=== PATIENT | female | born 1975 | race American Indian/Alaskan Native ===

== ENCOUNTER 2017-11-04 09:54 | Emergency (ER) | payer MEDICAID ==
[2017-11-04 09:55] VITALS: BMI 37.2
[2017-11-04 10:15] VITALS: TEMP 99.1; O2SAT 98
--- NOTE | 2017-11-04 10:53 | ED PDOC ---
Arrival/HPI - General Chief Complaint: ENT Problem Time Seen by Provider: 11/04/17 10:20 Historian: Patient - History of Present Illness Narrative History of Present Illness (Text): 11/04/17 11:10 A 41 year old female, whose past medical history includes hypertension, asthma, frequent sinusitis, presents to the emergency department complaining of greenish mucoid nasal discharge, greenish expectoration with nose and cough for the past four days. Reports chest tightness and mild shortness of breath. Denies any non-tussive chest pain orthopnea or pretibial edema. Patient denies any other complaints at this time. Time/Duration: < week Symptom Onset: Sudden Symptom Course: Unchanged Activities at Onset: Rest Context: Home Past Medical History - Provider Review Nursing Documentation Reviewed: Yes - Infectious Disease Hx of Infectious Diseases: None - Tetanus Immunization Tetanus Immunization: Unknown - Reproductive Menopause: No - Cardiac Hx Cardiac Disorders: Yes Hx Hypertension: Yes - Pulmonary Hx Respiratory Disorders: Yes Hx Asthma: Yes - Neurological Hx Neurological Disorder: No - HEENT Hx HEENT Disorder: No - Renal Hx Renal Disorder: No - Endocrine/Metabolic Hx Endocrine Disorders: No - Hematological/Oncological Hx Blood Disorders: No - Integumentary Hx Dermatological Disorder: No - Musculoskeletal/Rheumatological Hx Falls: No - Gastrointestinal Hx Gastrointestinal Disorders: No - Genitourinary/Gynecological Hx Genitourinary Disorders: No Other/Comment: on depo shots every 2 months - Psychiatric Hx Psychophysiologic Disorder: No Hx Depression: No Hx Emotional Abuse: No Hx Physical Abuse: No Hx Substance Use: No - Past Surgical History Past Surgical History: No Previous - Anesthesia Hx Anesthesia: No - Suicidal Assessment Feels Threatened In Home Enviroment: No Family/Social History - Physician Review Nursing Documentation Reviewed: Yes Family/Social History: No Known Family HX Smoking Status: Never Smoked Hx Alcohol Use: No Hx Substance Use: No Hx Substance Use Treatment: No Allergies/Home Meds Allergies/Adverse Reactions: Allergies No Known Allergies Allergy (Verified 11/04/17 10:15) Home Medications: Home Meds Medication Instructions Recorded Confirmed Medroxyprogesterone Acetate 150 mg IM PRN 11/04/17 11/04/17 [Depo-Provera] Review of Systems - Physician Review All systems were reviewed & negative as marked: Yes - Review of Systems ENT: Other (mucoid nasal discharge) Respiratory: SOB (mild), Cough (discharge) Cardiovascular: Other (chest tightness). absent: Chest Pain, Orthopnea Physical Exam Vital Signs Reviewed: Yes Vital Signs Temp Pulse Resp BP Pulse Ox 11/04/17 12:09 74 18 125/69 98 11/04/17 11:19 79 18 128/71 98 11/04/17 10:11 99.1 F 85 19 132/72 98 Temperature: Afebrile Blood Pressure: Normal Pulse: Regular Respiratory Rate: Normal Appearance: Positive for: Well-Appearing, Non-Toxic, Comfortable Pain Distress: None Mental Status: Positive for: Alert and Oriented X 3 - Systems Exam Head: Present: Atraumatic, Normocephalic Pupils: Present: PERRL Extroacular Muscles: Present: EOMI Conjunctiva: Present: Normal Mouth: Present: Moist Mucous Membranes Nose (Internal): Present: Other (swollen turbinates nasal) Neck: Present: Normal Range of Motion Respiratory/Chest: Present: Other (decrease i/e ratio). No: Respiratory Distress, Accessory Muscle Use, Rhonchi Cardiovascular: Present: Regular Rate and Rhythm, Normal S1, S2. No: Murmurs Abdomen: Present: Normal Bowel Sounds. No: Tenderness, Distention, Peritoneal Signs Back: Present: Normal Inspection Upper Extremity: Present: Normal Inspection. No: Cyanosis, Edema Lower Extremity: Present: Normal Inspection. No: Edema Neurological: Present: GCS=15, CN II-XII Intact, Speech Normal Skin: Present: Warm, Dry, Normal Color. No: Rashes Psychiatric: Present: Alert, Oriented x 3, Normal Insight, Normal Concentration Medical Decision Making ED Course and Treatment: 11/04/17 11:02 Impression: A 41 year old female with cough and mucoid nasal discharge. Differential Diagnosis included but are not limited to: presumptive URI symptoms Plan: -- Zithromax, Prednisone -- Reassess and disposition Prior Visits: Notes and results from previous visits were reviewed. Patient was last seen in the emergency department on 08/18/17 for evaluation of nasal congestion, sore throat and cough. Progress Notes: Recommend use of asthma inhaler, Netipot and will discharge patient home. - Medication Orders Current Medication Orders: Discontinued Medications Azithromycin (Zithromax) 500 mg PO STAT STA PRN Reason: Protocol Stop: 11/04/17 10:47 Last Admin: 11/04/17 11:39 Dose: 500 mg Prednisone (Prednisone Tab) 60 mg PO STAT ONE Stop: 11/04/17 10:48 Last Admin: 11/04/17 11:38 Dose: 60 mg - Scribe Statement The provider has reviewed the documentation as recorded by the Reji Cyr Provider Scribe Attestation: All medical record entries made by the Hajaibe were at my direction and personally dictated by me. I have reviewed the chart and agree that the record accurately reflects my personal performance of the history, physical exam, medical decision making, and the department course for this patient. I have also personally directed, reviewed, and agree with the discharge instructions and disposition. Disposition/Present on Arrival - Present on Arrival Any Indicators Present on Arrival: No History of DVT/PE: No History of Uncontrolled Diabetes: No Urinary Catheter: No History of Decub. Ulcer: No History Surgical Site Infection Following: None - Disposition Have Diagnosis and Disposition been Completed?: Yes Diagnosis: Acute bronchitis Disposition: HOME/ ROUTINE Disposition Time: 14:00 Patient Plan: Discharge Condition: FAIR Discharge Instructions (ExitCare): Acute Bronchitis (ED) Print Language: VIET[place]ESE Additional Instructions: avoid all dairy products, drink plenty of water , especially water w/ fresh lemon. Avoid all your regular asthma triggers. TAKE THE ANTIOBTICS PRESCRIBED. USE YOUR INHALER. Prescriptions: Albuterol 0.083% [Albuterol 0.083% Inhal Eugenie (2.5 mg/3 ml) UD] 0.5 ml IH Q4 PRN 5 Days neb PRN Reason: Cough Albuterol HFA [Ventolin HFA 90 mcg/actuation (8 g)] 0.09 mg IH Q4 PRN #1 bottle PRN Reason: Cough Azithromycin 250 mg PO DAILY #4 tablet Benzonatate [Tessalon Perles] 100 mg PO TID PRN #30 sgl PRN Reason: Cough Prednisone [Deltasone] 40 mg PO DAILY #8 tablet Referrals: Emile Cope MD [Primary Care Provider] - Follow up with primary Forms: [email or web address] (Irish)
[2017-11-04 11:19] VITALS: RESP 18
[2017-11-04 12:09] VITALS: BP 125/69; PULSE 74
== END 2017-11-04 12:10 | disposition home or self-care (01) ==
LOC: ED 09:54
DX: J20.9 Acute bronchitis, unspecified (principal); I10 Essential (primary) hypertension

== ENCOUNTER 2018-02-02 15:10 | Emergency (ER) | payer MEDICAID ==
[2018-02-02 15:11] VITALS: BMI 37.2
[2018-02-02 15:59] VITALS: BP 134/84
--- NOTE | 2018-02-02 17:07 | ED PDOC ---
Arrival/HPI - General Chief Complaint: ENT Problem Time Seen by Provider: 02/02/18 17:07 Historian: Patient - History of Present Illness Narrative History of Present Illness (Text): 02/02/18 17:07 Patient was just placed on this room. 02/02/18 17:15 This 42 yo female with pmh htn, and pharyngitis, presents to this ED c/o sore throat since this morning. Patient stated it is painful to swallow, and she has noticed green phlegm. Denies sob, cp, recent travel, sick contact, n/v, skin rash, or urinary symptoms. Time/Duration: Other (since this morning) Context: Home Past Medical History - Provider Review Nursing Documentation Reviewed: Yes - Infectious Disease Hx of Infectious Diseases: None - Tetanus Immunization Tetanus Immunization: Unknown - Cardiac Hx Cardiac Disorders: Yes Hx Hypertension: Yes - Pulmonary Hx Respiratory Disorders: Yes Hx Asthma: Yes - Neurological Hx Neurological Disorder: No - HEENT Hx HEENT Disorder: No - Renal Hx Renal Disorder: No - Endocrine/Metabolic Hx Endocrine Disorders: No - Hematological/Oncological Hx Blood Disorders: No - Integumentary Hx Dermatological Disorder: No - Musculoskeletal/Rheumatological Hx Falls: No - Gastrointestinal Hx Gastrointestinal Disorders: No - Genitourinary/Gynecological Hx Genitourinary Disorders: No Other/Comment: on depo shots every 2 months - Psychiatric Hx Psychophysiologic Disorder: No Hx Depression: No Hx Emotional Abuse: No Hx Physical Abuse: No Hx Substance Use: No - Past Surgical History Past Surgical History: No Previous - Anesthesia Hx Anesthesia: No - Suicidal Assessment Feels Threatened In Home Enviroment: No Family/Social History - Physician Review Nursing Documentation Reviewed: Yes Family/Social History: Other (noncontributory) Smoking Status: Never Smoked Hx Alcohol Use: No Hx Substance Use: No Hx Substance Use Treatment: No Allergies/Home Meds Allergies/Adverse Reactions: Allergies No Known Allergies Allergy (Verified 02/02/18 15:53) Home Medications: Home Meds Medication Instructions Recorded Confirmed Cetirizine HCl [Zyrtec] 10 mg PO DAILY 02/02/18 02/02/18 Losartan [Cozaar] 100 mg PO DAILY 02/02/18 02/02/18 Montelukast [Singulair] 10 mg PO DAILY 02/02/18 02/02/18 Review of Systems - Review of Systems Constitutional: Normal. absent: Fatigue, Weight Change, Fevers Eyes: Normal ENT: Sore Throat, Rhinorrhea, Sinus Congestion Respiratory: Cough, Sputum. absent: SOB, Wheezing Cardiovascular: Normal. absent: Chest Pain Gastrointestinal: Normal. absent: Abdominal Pain, Nausea, Vomiting Genitourinary Female: Normal. absent: Dysuria, Frequency, Hematuria Musculoskeletal: Normal Skin: Normal. absent: Rash Neurological: Normal. absent: Headache, Dizziness, Focal Weakness, Gait Changes , Speech Changes Endocrine: Normal Hemo/Lymphatic: Normal Psychiatric: Normal Physical Exam Vital Signs Temp Pulse Resp BP Pulse Ox 02/02/18 15:55 100.0 F H 111 H 17 134/84 100 Temperature: Afebrile Blood Pressure: Normal Pulse: Regular Respiratory Rate: Normal Appearance: Positive for: Well-Appearing, Non-Toxic, Comfortable Pain Distress: None Mental Status: Positive for: Alert and Oriented X 3 - Systems Exam Head: Present: Atraumatic, Normocephalic Pupils: Present: PERRL Extroacular Muscles: Present: EOMI Conjunctiva: Present: Normal Ears: Present: Normal, NORMAL TM, Normal Canal. No: Erythema, TM Bulging, Fluid , TM Perf Mouth: Present: Moist Mucous Membranes Pharnyx: Present: Normal. No: ERYTHEMA, EXUDATE, TONSILS ENLARGED, Peritonsilar Swelling, Uvular Deviation, Muffled/Hoarse Voice, Strider, Soft Palate/Uvular Edema Neck: Present: Normal Range of Motion, Trachea Midline. No: Meningeal Signs, MIDLINE TENDERNESS, Paraspinal Tenderness, Lymphadenopathy Respiratory/Chest: Present: Clear to Auscultation, Good Air Exchange. No: Respiratory Distress, Accessory Muscle Use, Wheezes, Retracting, Rhonchi, Tachypneic Cardiovascular: Present: Regular Rate and Rhythm, Normal S1, S2. No: Murmurs Abdomen: No: Tenderness, Distention, Peritoneal Signs, Rebound, Guarding Back: Present: Normal Inspection. No: CVA Tenderness Upper Extremity: Present: Normal Inspection, Normal ROM. No: Cyanosis, Edema Lower Extremity: Present: Normal Inspection, Normal ROM. No: Edema Neurological: Present: GCS=15, CN II-XII Intact, Speech Normal Skin: Present: Warm, Dry, Normal Color. No: Rashes Psychiatric: Present: Alert, Oriented x 3, Normal Insight, Normal Concentration Medical Decision Making ED Course and Treatment: 02/02/18 19:06 Re-evaluation. Patient feels better. Discussed results and plan with patient who expresses understanding. All questions answered and there is agreement with the plan to discharge home with instructions. Patient stable for discharge. Return if symptoms persist or worsen. Re-evaluation Time: 19:06 Reassessment Condition: Re-examined, Improved - Lab Interpretations Lab Results: Lab Results 02/02/18 17:50: Influenza Typ A,B (EIA) Negative for flu a/b 02/02/18 17:50: Grp A Beta Strep Ag Negative I have reviewed the lab results: Yes Interpretation: No clinic. lab abnormalty - Medication Orders Current Medication Orders: Discontinued Medications Ibuprofen (Motrin Tab) 800 mg PO STAT STA Stop: 02/02/18 17:43 Last Admin: 02/02/18 18:06 Dose: 800 mg Disposition/Present on Arrival - Present on Arrival Any Indicators Present on Arrival: No History of DVT/PE: No History of Uncontrolled Diabetes: No Urinary Catheter: No History of Decub. Ulcer: No History Surgical Site Infection Following: None - Disposition Have Diagnosis and Disposition been Completed?: Yes Diagnosis: Pharyngitis Disposition: HOME/ ROUTINE Disposition Time: 19:07 Patient Plan: Discharge Patient Problems: Current Active Problems Problem Status Onset Pharyngitis Acute Condition: GOOD Discharge Instructions (ExitCare): Sore Throat in Adults Additional Instructions: Call private doctor for follow up visit . Take medication as instructed. Drink plenty of fluids and rest. Return to emergency if symptoms worsen. Do not drive or operate machinery if you take Phenergan with codeine for at least 12 hours. Prescriptions: Amoxicillin 875 mg PO BID #20 tab Ibuprofen [Motrin] 600 mg PO Q6H PRN #30 tab PRN Reason: Pain, Severe (8-10) Promethazine/Codeine [Codeine/Promethazine 10 MG/5 Ml-6.25 MG/5 Ml] 5 ml PO Q4H PRN #120 ml PRN Reason: Cough And Congestion Referrals: Emile Cope MD [Primary Care Provider] - Follow up with primary Forms: [facility] (Peruvian), WORK NOTE
[2018-02-02 19:10] VITALS: PULSE 64; RESP 18; TEMP 99; O2SAT 99
== END 2018-02-02 19:12 | disposition home or self-care (01) ==
LOC: ED 15:10
DX: J02.9 Acute pharyngitis, unspecified (principal)

== ENCOUNTER 2018-10-31 15:13 | Emergency (ER) | payer MEDICAID ==
[2018-10-31 16:11] VITALS: BP 147/89; PULSE 75; RESP 18; TEMP 98.5; O2SAT 99; BMI 36.8
--- NOTE | 2018-10-31 16:21 | ED PDOC ---
Arrival/HPI - General Chief Complaint: Finger,Hand,&Wrist Time Seen by Provider: 10/31/18 15:16 Historian: Patient - History of Present Illness Narrative History of Present Illness (Text): 10/31/18 16:34 42-year-old female presents today with pruritus redness and swelling to the dorsal aspect of the distal right forearm. Patient denies trauma or injury but states she felt as if she got bit by something the other day. Patient denies numbness weakness or tingling in the extremity. pt denies fever/chills. no dizziness or weakness. pt states she occasionally feels tingling in the hand. pt states she only has pain if she scratches the area. Past Medical History - Provider Review Nursing Documentation Reviewed: Yes - Travel History Have you recently traveled outside [place] w/in the past 3 mons?: No - Infectious Disease Hx of Infectious Diseases: None - Tetanus Immunization Tetanus Immunization: Unknown - Cardiac Hx Cardiac Disorders: Yes Hx Hypertension: Yes - Pulmonary Hx Respiratory Disorders: Yes Hx Asthma: Yes - Neurological Hx Neurological Disorder: No - HEENT Hx HEENT Disorder: No - Renal Hx Renal Disorder: No - Endocrine/Metabolic Hx Endocrine Disorders: No - Hematological/Oncological Hx Blood Disorders: No - Integumentary Hx Dermatological Disorder: No - Musculoskeletal/Rheumatological Hx Musculoskeletal Disorders: No - Gastrointestinal Hx Gastrointestinal Disorders: No - Genitourinary/Gynecological Hx Genitourinary Disorders: No Other/Comment: on depo shots every 2 months - Psychiatric Hx Psychophysiologic Disorder: No Hx Depression: No Hx Emotional Abuse: No Hx Physical Abuse: No Hx Substance Use: No - Past Surgical History Past Surgical History: No Previous - Anesthesia Hx Anesthesia: No - Suicidal Assessment Feels Threatened In Home Enviroment: No Family/Social History - Physician Review Nursing Documentation Reviewed: Yes Family/Social History: Unknown Family HX Smoking Status: Never Smoked Hx Alcohol Use: No Hx Substance Use: No Hx Substance Use Treatment: No Allergies/Home Meds Allergies/Adverse Reactions: Allergies No Known Allergies Allergy (Verified 10/31/18 15:41) Home Medications: Home Meds Medication Instructions Recorded Confirmed Cetirizine HCl [Zyrtec] 10 mg PO DAILY 02/02/18 02/02/18 Losartan [Cozaar] 100 mg PO DAILY 02/02/18 02/02/18 Montelukast [Singulair] 10 mg PO DAILY 02/02/18 02/02/18 Review of Systems - Review of Systems Constitutional: absent: Fatigue, Fevers Respiratory: absent: SOB, Cough Cardiovascular: absent: Chest Pain, Palpitations Gastrointestinal: absent: Abdominal Pain, Nausea, Vomiting Genitourinary Female: absent: Dysuria, Frequency, Hematuria Musculoskeletal: absent: Arthralgias, Back Pain, Neck Pain Skin: Rash, Pruritis, Cellulitis Neurological: absent: Headache, Dizziness Psychiatric: absent: Anxiety, Depression Physical Exam Vital Signs Reviewed: Yes Vital Signs Temp Pulse Resp BP Pulse Ox 10/31/18 15:42 98.5 F 75 18 147/89 99 Temperature: Afebrile Blood Pressure: Normal Pulse: Regular Respiratory Rate: Normal Appearance: Positive for: Well-Appearing, Non-Toxic, Comfortable Pain Distress: None Mental Status: Positive for: Alert and Oriented X 3 - Systems Exam Head: Present: Atraumatic Mouth: Present: Moist Mucous Membranes Neck: Present: Normal Range of Motion Respiratory/Chest: Present: Clear to Auscultation, Good Air Exchange. No: Respiratory Distress, Accessory Muscle Use Cardiovascular: Present: Regular Rate and Rhythm Upper Extremity: Present: Normal ROM, NORMAL PULSES, Swelling, Erythema (right forearm; there is a 5cm area of erythema and swelling noted to the dorsal aspect of the distal forearm; no warmth. sensation and distal pulses in tact. cap refill < 2. full rom of hand and wrist. ), Neurovascularly Intact, Capillary Refill < 2s. No: Tenderness, Deformity Neurological: Present: GCS=15, Speech Normal Skin: Present: Warm, Dry, Normal Color Psychiatric: Present: Alert, Oriented x 3 Medical Decision Making ED Course and Treatment: 10/31/18 16:56 42yr old female with right wrist swelling and redness. no trauma or injury. Patient is nontoxic well-appearing in no distress with stable vital signs pt with cellulitis vs localized allergic reaction. will treat with benadryl and keflex. pt was advised to take antibiotics and Benadryl as prescribed and follow up with primary care physician. She is advised immediate return if symptoms worsen persist or if new concerning symptoms develop Patient verbalizes understanding of discharge instructions and need for immediate followup. Impression: Cellulitis Motrin every 6 hours as needed for pain Keflex one capsule 4 times daily 7 days Benadryl every 6 hours as needed for itch Follow up with primary care physician within the next 2 days Return immediately if symptoms worsen persist or if new symptoms develop; high fevers, increasing pain, increasing redness, swelling or if any otehr concerning symptoms develop. Disposition/Present on Arrival - Present on Arrival Any Indicators Present on Arrival: No History of DVT/PE: No History of Uncontrolled Diabetes: No Urinary Catheter: No History of Decub. Ulcer: No History Surgical Site Infection Following: None - Disposition Have Diagnosis and Disposition been Completed?: Yes Diagnosis: Cellulitis of wrist Disposition: HOME/ ROUTINE Disposition Time: 16:24 Patient Plan: Discharge Condition: GOOD Discharge Instructions (ExitCare): Cellulitis (ED) Additional Instructions: Motrin every 6 hours as needed for pain Keflex one capsule 4 times daily 7 days Benadryl every 6 hours as needed for itch Follow up with primary care physician within the next 2 days Return immediately if symptoms worsen persist or if new symptoms develop; high fevers, increasing pain, increasing redness, swelling or if any otehr concerning symptoms develop. Prescriptions: Cephalexin [Keflex] 500 mg PO QID #28 capsule DiphenhydrAMINE [Benadryl] 25 mg PO Q6H #20 cap Ibuprofen [Motrin] 600 mg PO Q6H PRN #20 tab PRN Reason: pain/fever reduction Referrals: Ginger Reaves MD [Medical Doctor] - Follow up with primary Healthcare Liaison Service [Outside] - Follow up with primary Forms: [employer] ([place]), WORK NOTE
== END 2018-10-31 16:41 | disposition home or self-care (01) ==
LOC: ED 15:13
DX: L03.115 Cellulitis of right lower limb (principal); I10 Essential (primary) hypertension